=== PATIENT | male | born 2000 | race Two or more races ===

== ENCOUNTER 2021-10-12 13:23 | Emergency (ER) | payer SELFPAY ==
[2021-10-12] MEDS: Ibuprofen 600 MG Tab PO ONE (14:11)
[2021-10-12 15:15] LABS: CARBON DIOXIDE,CO2 28.8 mmol/L (21.0-32.0); POTASSIUM,K 3.7 mmol/L (3.5-5.1)
== END 2021-10-12 15:51 | disposition home or self-care (01) ==
LOC: MW.ED 13:23
DX: R07.89 Other chest pain (principal); Z20.822 Contact with and (suspected) exposure to COVID-19
CPT/HCPCS: 36415; 80053; 83735; 84443; 84484; 85025; 85379; 87635; 93005; 99285; A9270; 93010; 99284; U0002

== ENCOUNTER 2022-04-06 08:10 | Emergency (ER) | payer SELFPAY ==
[2022-04-06] MEDS ORDERED: Aspirin 81 MG Tab.Chew PO ONE (08:53)
[2022-04-06] MEDS ORDERED: Lactated Ringers 1,000 ML IV ONE (09:14)
[2022-04-06 09:15] LABS: CARBON DIOXIDE,CO2 24.3 mmol/L (21.0-32.0); POTASSIUM,K 3.4 mmol/L (3.5-5.1)
[2022-04-06 09:23] LABS: CORONAVIRUS COVID-19 NAA NEGATIVE (NEGATIVE); INFLUENZA A NAA NEGATIVE (NEGATIVE); INFLUENZA B NAA NEGATIVE (NEGATIVE); RESPIRATORY SYNCYTIAL VIR NAA NEGATIVE (NEGATIVE)
== END 2022-04-06 12:14 | disposition home or self-care (01) ==
LOC: MW.ED 08:10
DX: R07.89 Other chest pain (principal); Z86.16 Personal history of COVID-19; Z20.822 Contact with and (suspected) exposure to COVID-19
CPT/HCPCS: 0241U; 36415; 71045; 76700; 80053; 84484; 85025; 93005; 96360; 99285; A9270; J7120; 93010; 99283

== ENCOUNTER 2022-06-05 01:12 | Emergency (ER) | payer OTHER | END 2022-06-05 01:46 | disposition home or self-care (01) | LOC: MW.ED 01:12 | DX: I10 Essential (primary) hypertension (principal); Z86.16 Personal history of COVID-19 | CPT/HCPCS: 99283 ==

== ENCOUNTER 2022-08-18 16:09 | Emergency (ER) | payer OTHER ==
[2022-08-18] MEDS ORDERED: Diphtheria,Pertussis(Acell),Tetanus Vaccine 0.5 ML Syringe IM ONE (18:27)
[2022-08-18] MEDS ORDERED: Lidocaine 1% 5 ML VIAL INJECT ONE (18:27)
[2022-08-18] MEDS ORDERED: Bacitracin Oint 1 GM U/D Packet TOP ONE (19:20)
== END 2022-08-18 19:36 | disposition home or self-care (01) ==
LOC: MW.ED 16:09
DX: S61.214A Laceration without foreign body of right ring finger without damage to nail, initial encounter (principal); Z86.16 Personal history of COVID-19; Z23 Encounter for immunization; W27.0XXA Contact with workbench tool, initial encounter
CPT/HCPCS: 12001; 73140-26-F8; 73140-F8; 90471; 90715; 99283; 99283-25; J3490

== ENCOUNTER 2023-10-08 13:48 | Emergency (ER) | payer SELFPAY ==
[2023-10-08 14:58] LABS: BASOPHILS ABSOLUTE AUTO 0.03 K/uL (0.00-0.20); BASOPHILS PERCENT AUTO 0.5 % (0.0-1.0); EOSINOPHILS ABSOLUTE AUTO 0.04 K/uL (0.00-0.45); EOSINOPHILS PERCENT AUTO 0.6 % (0.0-6.0); HEMOGLOBIN 17.6 g/dL (14.0-18.0); IMMATURE GRAN ABSOLUTE AUTO 0.01 K/uL (0.00-0.05); IMMATURE GRAN PERCENT AUTO 0.2 % (0.0-0.4); LYMPHOCYTES PERCENT AUTO 30.9 % (24.0-44.0); MEAN CORPUSCULAR HEMOGLOBIN 32.2 pg (28.0-32.0); MEAN CORPUSCULAR HGB CONC 36.7 g/dL (32.0-36.0); MEAN CORPUSCULAR VOLUME 87.8 fL (83.0-99.0); MEAN PLATELET VOLUME 8.3 fL (9.4-12.4); MONOCYTES ABSOLUTE AUTO 0.53 K/uL (0.00-0.80); MONOCYTES PERCENT AUTO 8.2 % (0.0-8.0); NEUTROPHILS ABSOLUTE AUTO 3.86 K/uL (1.80-7.70); NEUTROPHILS PERCENT AUTO 59.6 % (41.0-71.0); PLATELET COUNT,PLT 265 K/uL (150-400); RED BLOOD CELL COUNT 5.47 M/uL (4.52-5.90); WHITE BLOOD CELL COUNT,WBC 6.47 K/uL (3.9-11.3)
[2023-10-08 15:10] LABS: INR 1.07 (0.86-1.11)
== END 2023-10-08 15:38 | disposition home or self-care (01) ==
LOC: MW.ED 13:48
DX: R51.9 Headache, unspecified (principal); Z75.8 Other problems related to medical facilities and other health care
CPT/HCPCS: 36415; 70450; 70450-26; 85025; 85610; 99284